=== PATIENT | female | born 1985 | race Caucasian/White ===

== ENCOUNTER 2016-12-13 19:48 | Emergency (ER) | payer SELFPAY ==
[~2016-12-13] VITALS: Ht 157.5 cm; Wt 88.5 kg
[2016-12-13 19:48] VITALS: BP 117/88
[2016-12-13] MEDS ORDERED: KETOROLAC TROMETHAMINE INJ 60 MG/2 ML VIAL IM ONE ×2 (23:00→23:11)
[2016-12-13] MEDS ORDERED: DEXAMETHASONE SOD PHOSPHATE 4 MG/ML VIAL IM ONE (23:00)
[2016-12-13] MEDS ORDERED: DEXAMETHASONE SOD PHOSPHATE 4 MG/ML VIAL ONE (23:10)
== END 2016-12-13 23:28 | disposition home or self-care (01) ==
LOC: ER 19:50
DX: M54.17 Radiculopathy, lumbosacral region (principal)
CPT/HCPCS: A4606; J1100; J1885; Z7610